=== PATIENT | female | born 1975 | race Caucasian/White ===

== ENCOUNTER 2016-08-19 11:49 | Emergency (ER) | payer SELFPAY ==
[2016-08-19 12:06] VITALS: BP 117/78
--- NOTE | 2016-08-19 12:43 | UC ---
Back Pain HPI - HPI Summary HPI Summary: pt reports that she was moving stacks of unfolded, cardboard cake boxes yesterday while squatting and felt a sudden onset of low back and left side posterior upper leg pain and stiffness. - History of Current Complaint Chief Complaint: UCBackPain Stated Complaint: LOW BACK PAIN Time Seen by Provider: 08/19/16 12:27 Hx Obtained From: Patient Hx Last Menstrual Period: 08/10/16 ?: No Onset/Duration: Sudden Onset, Lasting Hours Timing: Constant Severity Initially: Moderate Severity Currently: Mild Back Pain: Is Discrete @ - left lower back and upper posterior leg, Radiates To - left upper posterior knee Character: Dull, Aching, Spasmodic, Stiffness Aggravating: Movement Alleviating: Position Associated Signs And Symptoms: Positive: Negative - Allergies/Home Medications Allergies/Adverse Reactions: Allergies Allergy/AdvReac Type Severity Reaction Status Date / Time No Known Allergies Allergy Verified 08/19/16 12:00 Home Medications: Home Medications Ibuprofen [Advil] 600 mg PO ONCE PRN 08/19/16 [History Confirmed 08/19/16] PMH/Surg Hx/FS Hx/Imm Hx Previously Healthy: Yes - Surgical History Surgical History: Yes Surgery Procedure, Year, and Place: [id number]- 1994 - Family History Known Family History: Positive: Cardiac Disease - Social History Lives: With Family Alcohol Use: Occasionally Substance Use Type: None Smoking Status (MU): Never Smoked Tobacco Review of Systems Constitutional: Negative Skin: Negative Eyes: Negative ENT: Negative Respiratory: Negative Cardiovascular: Negative Gastrointestinal: Negative Genitourinary: Negative Motor: Decreased ROM - low back Neurovascular: Negative Musculoskeletal: Decreased ROM - left lower back, Myalgia Neurological: Negative Psychological: Negative All Other Systems Reviewed And Are Negative: Yes Physical Exam Triage Information Reviewed: Yes Appearance: Pain Distress Vital Signs: Initial Vital Signs Temp 99.3 F 08/19/16 12:01 Pulse 82 08/19/16 12:01 Resp 16 08/19/16 12:01 BP 117/78 08/19/16 12:01 Pulse Ox 100 08/19/16 12:01 Neck exam: Normal Respiratory Exam: Normal Musculoskeletal: Positive: ROM Limited @ - left side low back, no point tenderness ellicited Neurological Exam: Normal Psychological Exam: Normal Skin Exam: Normal Back Pain Course/Dx - Course Course Of Treatment: sacrum and coccyx xray. FINDINGS: There are no bony abnormalities. SI joints and symphysis appear intact. The soft. tissues are normal. IMPRESSION: NEGATIVE EXAMINATION. - Differential Dx/Diagnosis Differential Diagnosis/HQI/PQRI: Cauda Equina Syndrome, Herniated Disc, Strain Provider Diagnoses: low back strain Discharge - Discharge Plan Condition: Stable Disposition: HOME Prescriptions: Cyclobenzaprine TAB* [Flexeril TAB*] 10 mg PO TID PRN #15 tab PRN Reason: Pain Ibuprofen TAB* [Motrin TAB* 800 MG] 800 mg PO Q8HR #24 tab Patient Education Materials: Low Back Strain (ED), Lower Back Exercises (ED) Referrals: [facility] [place] PHYSICIAN REFERRAL [Outside] No Primary Care Phys,NOPCP [Medical Doctor] -
[2016-08-19] MEDS ORDERED: Cyclobenzaprine TAB* 10 MG PO ONE (12:51)
[2016-08-19] MEDS ORDERED: Ketorolac INJ* 60 MG/2 ML VIAL IM ONE (12:51)
--- NOTE | 2016-08-19 13:06 | RAD ---
INDICATION: Low back pain COMPARISON: None TECHNIQUE: AP and lateral views of the coccyx and sacrum were obtained FINDINGS: There are no bony abnormalities. SI joints and symphysis appear intact. The soft tissues are normal IMPRESSION: NEGATIVE EXAMINATION.
== END 2016-08-19 13:26 | disposition home or self-care (01) ==
LOC: UCCORT 11:49
DX: S39.012A Strain of muscle, fascia and tendon of lower back, initial encounter (principal); X50.0XXA Overexertion from strenuous movement or load, initial encounter; Y93.89 Activity, other specified; Y92.9 Unspecified place or not applicable
CPT/HCPCS: 72220; 96372; 99212; A9270-GY; G0463; J1885